=== PATIENT | male | born 1950 | race Caucasian/White ===

== ENCOUNTER 2018-07-31 13:31 | Observation (INO) | payer OTHER ==
--- NOTE | 2018-07-31 14:33 | EDPHY ---
H & P Stated Complaint: fall ice skating Time Seen by Provider: 07/31/18 14:32 HPI/ROS: HPI CHIEF COMPLAINT: Fall ice skating. HISTORY OF PRESENT ILLNESS: 68-year-old male presents emergency room after he fell ice skating. Patient was wearing helmet. He fell backwards with head strike. He was helmeted. No LOC. However complains of a headache. Also complains of neck pain. Also complains of right posterior rib pain. Denies any other areas of pain. He states when he fell and knocked the wind out of him. Past Medical History: Insulin-dependent diabetes Past Surgical History: No recent surgery Social History: Lives in [place] visiting his brother here in [place]. Family History: Noncontributory ROS REVIEW OF SYSTEMS: 10 Systems were reviewed and negative with the exception of the elements mentioned in the history of present illness. Exam Constitutional GCS 15, alert or x4, triage nursing summary reviewed, vital signs reviewed, awake/alert. Eyes normal conjunctivae and sclera, EOMI, PERRLA. HENT head/neck atraumatic but in a cervical collar placed by ER staff upon arrival, no significant midline pain otherwise atraumatic head and neck exam moist mucus membranes, no epistaxis, neck supple/ no meningismus, no raccoon eyes. Respiratory clear to auscultation bilaterally, normal breath sounds, no respiratory distress, no wheezing. Cardiovascular chest wall: Right posterior chest wall nontender palpation, no crepitus, rate normal, regular rhythm, no murmur, no edema, distal pulses normal. Gastrointestinal soft, non-tender, no rebound, no guarding, normal bowel sounds, no distension, no pulsatile mass. Genitourinary no CVA tenderness. Musculoskeletal no midline vertebral tenderness, full range of motion, no calf swelling, no tenderness of extremities, no meningismus, good pulses, neurovascularly intact. Skin pink, warm, & dry, no rash, skin atraumatic. Neurologic awake, alert and oriented x 3, AAOx3, moves all 4 extremities equally, motor intact, sensory intact, CN II-XII intact, normal cerebellar, normal vision, normal speech. Psychiatric normal mood/affect. Heme/Lymph/Immune no lymphadenopathy. Differential Diagnosis: Includes but is not limited to in a particular order closed-head injury, concussion, intracranial bleed, skull fracture, rib fracture , rib contusion, pneumothorax, hemothorax Medical Decision Making: Plan for this patient CT scan head without contrast and CT cervical spine without contrast, chest x-ray two view. [place] for pain control. Re-evaluation: CT scan head without contrast and CT cervical spine without contrast for trauma called to me by Dr. Philip Carcamo. Negative for acute traumatic injury. CT scan of the chest without contrast called to me by Dr. Hernandez, shows rib fractures 3 through 8th, the 5th and 6th rib on the right are flail segment. Also T7 T8 endplate superior fractures per I spoke with Dr. Pierce, with Trauma surgery agrees to admit the patient overnight. Plan for admission overnight for rib fractures, fall, contusion chest wall. Source: Patient - Personal History Current Tetanus/Diphtheria Vaccine: Yes Current Tetanus Diphtheria and Acellular Pertussis (TDAP): Yes - Medical/Surgical History Hx Asthma: No Hx Chronic Respiratory Disease: No Hx Diabetes: Yes Hx Cardiac Disease: No Hx Renal Disease: No Hx Cirrhosis: No Hx Alcoholism: No Hx HIV/AIDS: No Hx Splenectomy or Spleen Trauma: No Other PMH: DM1, hypertension, depression, tonsilectomy - Social History Smoking Status: Never smoked Constitutional: Initial Vital Signs Temperature (C) 36.4 C 07/31/18 13:36 Heart Rate 81 07/31/18 13:36 Respiratory Rate 16 07/31/18 13:36 Blood Pressure 112/53 L 07/31/18 13:36 O2 Sat (%) 97 07/31/18 13:36 O2 Delivery Mode Room Air Allergies/Adverse Reactions: No Known Allergies Allergy (Unverified 07/31/18 13:35) Home Medications: Medication Instructions Recorded Atorvastatin Calcium [Lipitor 40 40 mg PO DAILY 07/31/18 mg (*)] Cholecalciferol (Vitamin D3) 1,000 unit PO DAILY 07/31/18 [Vitamin D3] Insulin Pump, Patient Own 1 ea MISC AD 07/31/18 Lisinopril [Zestril 40 mg (*)] 40 mg PO DAILY 07/31/18 Venlafaxine HCl [Venlafaxine 75MG 150 mg PO DAILY 07/31/18 (*)] Vitamin B Complex [Vitamin B 1 each PO DAILY 07/31/18 Complex (OTC)] amLODIPine BESYLATE [Amlodipine 10 mg PO DAILY 07/31/18 Besylate] busPIRone [Buspar (*)] 10 mg PO BID 07/31/18 Medical Decision Making - Diagnostics Imaging Results: Imaging Impressions Cervical Spine CT 07/31/18 14:18 Impression: 1. No acute posttraumatic abnormality identified. If there is persistent pain or neurologic deficit, consider MRI and/or flexion and extension views, if clinically indicated. 2. Grade 1 spondylolisthesis of C7 on T1, with multilevel degenerative change, most prominent from C5 through C7, with probable moderate to severe spinal canal narrowing. 3. 1.3 cm left thyroid nodule, for which no further follow up is recommended per the [employer]. Findings discussed with Bella Lee M.D., on July 31, [address] 07/31/18 14:18 Impression: 1. No acute intracranial findings. 2. Diffuse cerebral atrophy with periventricular and subcortical low attenuation consistent with chronic microvascular ischemic gliosis. Findings discussed with Bella Lee M.D., on July 31, 2018 at 1506. Chest X-Ray 07/31/18 14:21 Impression: 1. Suspect acute posterior right sixth rib fracture. Multiple old bilateral rib and thoracic spine fractures described above; an acute component cannot be excluded. 2. No pneumothorax or pulmonary contusion. Chest CT 07/31/18 15:16 Impression: 1. Fractures of the third through eighth ribs as described, with 2 body fractures of the fifth and sixth ribs. 2. Superior compression deformities of T7 and T8, likely acute. 3. Left thyroid nodule measuring 9.2 mm. Would recommend ultrasound characterization. Findings and recommendations discussed with Jim Gamble MD at 1612 hour, 07/31/2018. - Data Points Medications Given: Cyclobenzaprine HCl (Flexeril) 10 mg PO TID JESUS Stop: 01/27/19 21:59 Last Admin: 07/31/18 21:52 Dose: 10 mg Ibuprofen (Motrin) 400 mg PO Q8HRS JESUS Stop: 01/27/19 21:59 Last Admin: 07/31/18 21:52 Dose: 400 mg Discontinued Medications Hydrocodone Bitart/Acetaminophen ([place] 5/325) 1 tab PO EDNOW ONE Stop: 07/31/18 14:59 Last Admin: 07/31/18 15:03 Dose: 1 tab Fentanyl (Sublimaze) 50 mcg IVP EDNOW ONE Stop: 07/31/18 16:17 Last Admin: 07/31/18 16:36 Dose: 50 mcg Sodium Chloride (Ns) 1,000 mls @ 0 mls/hr IV ONCE ONE; Wide Open PRN Reason: Protocol Stop: 07/31/18 16:17 Last Admin: 07/31/18 16:35 Dose: 1,000 mls Departure - Departure Disposition: [facility] Inpatient Acute Clinical Impression: Rib fractures Qualifiers: Encounter type: initial encounter Rib fracture type: multiple ribs Fracture type: closed Laterality: right Qualified Code(s): S22.41XA - Multiple fractures of ribs, right side, initial encounter for closed fracture Head injury Qualifiers: Encounter type: initial encounter Qualified Code(s): S09.90XA - Unspecified injury of head, initial encounter Concussion Qualifiers: Encounter type: initial encounter Loss of consciousness presence/duration: without LOC Qualified Code(s): S06.0X0A - Concussion without loss of consciousness, initial encounter Condition: Fair
[2018-07-31] MEDS ORDERED: HYDROCODONE/APAP 5/325 TAB PO ONE (14:58)
[2018-07-31] MEDS ORDERED: fentaNYL 100 MCG/2 ML INJ IVP ONE (16:16)
[2018-07-31] MEDS ORDERED: NS 1,000 ML IV ONE (16:16)
[2018-07-31 16:42] LABS: PLATELET COUNT 216 10^3/uL (150-400)
[2018-07-31 16:50] LABS: INR 0.91 (0.83-1.16); PROTIME(PATIENT) 12.5 SEC (12.0-15.0)
[2018-07-31] MEDS ORDERED: DIAZEPAM 5 MG TAB PO PRN (17:30)
[2018-07-31] MEDS ORDERED: HYDROCODONE/APAP 5/325 TAB PO PRN (17:30)
[2018-07-31] MEDS ORDERED: ONDANSETRON DISINTEGRATING 4 MG TAB PO PRN (17:30)
[2018-07-31] MEDS ORDERED: ACETAMINOPHEN 325 MG TAB PO PRN (17:30)
--- NOTE | 2018-07-31 17:30 | PDGENHP ---
History and Physical - Chief Complaint back and chest pain - History of Present Illness Mr. Evans was skating with hockey gear on including a helmet, when he lost his balance and fell backwards hitting the back of his head and feeling the wind knocked out of him. He got up and tried to skate some more, but felt dizzy and decided to come to the hospital. He was seem and evaluated by Dr. Mejia and was found to have multiple right sided rib fractures and Trauma Service admission was requested. History Information - Allergies/Home Medication List Allergies/Adverse Reactions: No Known Allergies Allergy (Unverified 07/31/18 13:35) Home Medications: Atorvastatin Calcium [Lipitor 40 mg (*)] 40 mg PO DAILY 07/31/18 [Last Taken Unknown] Cholecalciferol (Vitamin D3) [Vitamin D3] 1,000 unit PO DAILY 07/31/18 [Last Taken Unknown] Insulin Pump, Patient Own 1 ea MISC AD 07/31/18 [Last Taken Unknown] Lisinopril [Zestril 40 mg (*)] 40 mg PO DAILY 07/31/18 [Last Taken Unknown] Venlafaxine HCl [Venlafaxine 75MG (*)] 150 mg PO DAILY 07/31/18 [Last Taken Unknown] Vitamin B Complex [Vitamin B Complex (OTC)] 1 each PO DAILY 07/31/18 [Last Taken Unknown] amLODIPine BESYLATE [Amlodipine Besylate] 10 mg PO DAILY 07/31/18 [Last Taken Unknown] busPIRone [Buspar (*)] 10 mg PO BID 07/31/18 [Last Taken Unknown] I have personally reviewed and updated: family history, medical history, social history, surgical history - Past Medical History diabetes type 1 (uses continuous insulin infusion pump), hypertension, hyperlipidemia, recent fracture - Surgical History Additional surgical history: two prior closed head injury, one after a BCA resulted in a 5 day period of amnesia. he also fell skating one other time resulting in a concussion - Social History Smoking Status: Never smoked Alcohol Use: Occasionally Drug Use: None Additional social history: here visiting his twin brother/he lives in [facility]. Review of Systems Review of Systems: Constitutional: Reports: recent illness EENMT: Reports: no symptoms Cardiac: Reports: chest pain, lightheadedness Respiratory: Reports: other (pain with deep inspiration, no hemoptysis) Gastrointestinal: Reports: no symptoms Genitourinary: Reports: no symptoms Muscolosketal: Reports: back pain, muscle stiffness Neurological: Reports: no symptoms Physical Exam Physical Exam: Temp Pulse Resp BP Pulse Ox 36.4 C 78 16 157/73 H 97 07/31/18 13:36 07/31/18 16:00 07/31/18 16:00 07/31/18 16:00 07/31/18 16:00 Constitutional: appears nourished, uncomfortable Eyes: PERRL, EOMI, other Ears, Nose, Mouth, Throat: other (TMs clear, cervical spine non-tender ) Cardiovascular: regular rate and rhythym, no murmur, rub, or gallop Peripheral Pulses: 2+: dorsalis-pedis (R), dorsalis-pedis (L), 3+: femoral (R), femoral (L) Respiratory: no respiratory distress, reduced air movement, other (tenderness right lateral chest wall without crepitance) Gastrointestinal: normoactive bowel sounds Genitourinary: no bladder fullness Skin: warm Musculoskeletal: other (mild tenderness thoracic spine /paramedian) Neurologic: AAOx3, sensation intact bilaterally, CN II-XII Intact, other (DTR's symmetrical, no focal weakness) Lymph, Heme, Immunologic: no cervical LAD Lab Data & Imaging Review 07/31/18 16:33 07/31/18 16:33 WBC 11.44 10^3/uL (3.80-9.50) H 07/31/18 16:33 RBC 4.30 10^6/uL (4.40-6.38) L 07/31/18 16:33 Hgb 12.9 g/dL (13.7-17.5) L 07/31/18 16:33 Hct 38.3 % (40.0-51.0) L 07/31/18 16:33 MCV 89.1 fL (81.5-99.8) 07/31/18 16:33 MCH 30.0 pg (27.9-34.1) 07/31/18 16:33 MCHC 33.7 g/dL (32.4-36.7) 07/31/18 16:33 RDW 13.1 % (11.5-15.2) 07/31/18 16:33 Plt Count 216 10^3/uL (150-400) 07/31/18 16:33 MPV 9.6 fL (8.7-11.7) 07/31/18 16:33 Neut % (Auto) 85.0 % (39.3-74.2) H 07/31/18 16:33 Lymph % (Auto) 8.8 % (15.0-45.0) L 07/31/18 16:33 [place] % (Auto) 5.2 % (4.5-13.0) 07/31/18 16:33 Eos % (Auto) 0.1 % (0.6-7.6) L 07/31/18 16:33 Baso % (Auto) 0.4 % (0.3-1.7) 07/31/18 16:33 Nucleat RBC Rel Count 0.0 % (0.0-0.2) 07/31/18 16:33 Absolute Neuts (auto) 9.72 10^3/uL (1.70-6.50) H 07/31/18 16:33 Absolute Lymphs (auto) 1.01 10^3/uL (1.00-3.00) 07/31/18 16:33 Absolute Monos (auto) 0.59 10^3/uL (0.30-0.80) 07/31/18 16:33 Absolute Eos (auto) 0.01 10^3/uL (0.03-0.40) L 07/31/18 16:33 Absolute Basos (auto) 0.05 10^3/uL (0.02-0.10) 07/31/18 16:33 Absolute Nucleated RBC 0.00 10^3/uL (0-0.01) 07/31/18 16:33 Immature Gran % 0.5 % (0.0-1.1) 07/31/18 16:33 Immature Gran # 0.06 10^3/uL (0.00-0.10) 07/31/18 16:33 PT 12.5 SEC (12.0-15.0) 07/31/18 16:33 INR 0.91 (0.83-1.16) 07/31/18 16:33 APTT 21.0 SEC (23.0-38.0) L 07/31/18 16:33 Sodium 134 mEq/L (135-145) L 07/31/18 16:33 Potassium 4.3 mEq/L (3.5-5.2) 07/31/18 16:33 Chloride 101 mEq/L (97-110) 07/31/18 16:33 Carbon Dioxide 24 mEq/l (22-31) 07/31/18 16:33 Anion Gap 9 mEq/L (6-14) 07/31/18 16:33 BUN 21 mg/dL (7-23) 07/31/18 16:33 Creatinine 1.2 mg/dL (0.7-1.3) 07/31/18 16:33 Estimated GFR 60 07/31/18 16:33 Glucose 194 mg/dL (70-100) H 07/31/18 16:33 Calcium 10.3 mg/dL (8.5-10.4) 07/31/18 16:33 Visualized and Interpreted Chest x-ray results: Yes Chest X-Ray results: other (old fractures rith lateral 4-6 ribs/no pneumo or hemo) Visualized and Interpreted imaging results: Yes Interpretation: CT head and neck negative for acute fracture or bleed, Chest CT shows displaced posaterior right 5th, 6th and 8th ribs, non-displaced fractures right anterolateral 3rd-7th ribs. Compression fractures T7-8 (age indeterminate) 9 mm left thyroid nodule Assessment & Plan Assessment: Fall while skating with helmet Concussion (Acute) with prior history of two prior closed head injuries Rib fractures, multiple right sided fractures, uncomplicated IDDM HTN Hyperlipidemia Age >65 Plan: MRI thoracic spine/spine precautions until then admit med surgery Trauma Service with Hospitalist consult Pulmonary toilet/IS VTE prophylaxis OT/PT/ST consults IV/oral narcotics for pain muscle relaxants Michael Pierce MD, FACS
[2018-07-31] MEDS ORDERED: NS 1,000 ML IV SCH (17:45)
[2018-07-31] MEDS ORDERED: D50W 25 GM/50 ML VIAL IVP PRN (21:05)
--- NOTE | 2018-07-31 21:10 | PDHOSCONS ---
History and Physical - Chief Complaint rib fractures - History of Present Illness Patient is a 68 yo M with PMH of DM1, HTN, depression and anxiety currently visiting his twin brother from [place] who presents s/p fall while skating. He notes he has some rib pain and hit his head when he fell. He was found to have multiple rib fractures, thoracic compression fractures and concussion. At the time of my evaluation he states his pain is controlled, he is cautious in taking pain meds as he is afraid of becoming addicted. He notes he had a similar incident while skating 5 years ago but that time the rib pain was much worse. He notes he has very well controlled DM, he uses an insulin pump and has been managing it for 46 years. He notes his sugar was high tonight due to the adrenaline. History Information - Allergies/Home Medication List Allergies/Adverse Reactions: No Known Allergies Allergy (Unverified 07/31/18 13:35) Home Medications: Atorvastatin Calcium [Lipitor 40 mg (*)] 40 mg PO DAILY 07/31/18 [Last Taken Unknown] Cholecalciferol (Vitamin D3) [Vitamin D3] 1,000 unit PO DAILY 07/31/18 [Last Taken Unknown] Insulin Pump, Patient Own 1 ea MISC AD 07/31/18 [Last Taken Unknown] Lisinopril [Zestril 40 mg (*)] 40 mg PO DAILY 07/31/18 [Last Taken Unknown] Venlafaxine HCl [Venlafaxine 75MG (*)] 150 mg PO DAILY 07/31/18 [Last Taken Unknown] Vitamin B Complex [Vitamin B Complex (OTC)] 1 each PO DAILY 07/31/18 [Last Taken Unknown] amLODIPine BESYLATE [Amlodipine Besylate] 10 mg PO DAILY 07/31/18 [Last Taken Unknown] busPIRone [Buspar (*)] 10 mg PO BID 07/31/18 [Last Taken Unknown] I have personally reviewed and updated: family history, medical history, social history, surgical history - Past Medical History diabetes type 1, hypertension, hyperlipidemia, psychiatric history - Surgical History Reports: no pertinent surgical hx - Family History Positive for: diabetes type I - Social History Smoking Status: Never smoked Alcohol Use: Occasionally Drug Use: None Additional social history: lives in [facility], visiting his twin brother Review of Systems Review of Systems: ROS: 10pt was reviewed & negative except for what was stated in HPI & below Physical Exam Physical Exam: Temp Pulse Resp BP Pulse Ox 37 C 79 16 140/68 H 99 07/31/18 18:03 07/31/18 18:03 07/31/18 18:03 07/31/18 18:03 07/31/18 18:03 Constitutional: no apparent distress, appears nourished Eyes: PERRL, anicteric sclera Ears, Nose, Mouth, Throat: moist mucous membranes, hearing normal Cardiovascular: regular rate and rhythym, no murmur, rub, or gallop Respiratory: no respiratory distress, no rales or rhonchi Gastrointestinal: normoactive bowel sounds Skin: warm, normal color Musculoskeletal: no muscle tenderness Neurologic: AAOx3 Psychiatric: interacting appropriately Lab Data & Imaging Review 07/31/18 16:33 07/31/18 16:33 WBC 11.44 10^3/uL (3.80-9.50) H 07/31/18 16:33 RBC 4.30 10^6/uL (4.40-6.38) L 07/31/18 16:33 Hgb 12.9 g/dL (13.7-17.5) L 07/31/18 16:33 Hct 38.3 % (40.0-51.0) L 07/31/18 16:33 MCV 89.1 fL (81.5-99.8) 07/31/18 16:33 MCH 30.0 pg (27.9-34.1) 07/31/18 16:33 MCHC 33.7 g/dL (32.4-36.7) 07/31/18 16:33 RDW 13.1 % (11.5-15.2) 07/31/18 16:33 Plt Count 216 10^3/uL (150-400) 07/31/18 16:33 MPV 9.6 fL (8.7-11.7) 07/31/18 16:33 Neut % (Auto) 85.0 % (39.3-74.2) H 07/31/18 16:33 Lymph % (Auto) 8.8 % (15.0-45.0) L 07/31/18 16:33 [place] % (Auto) 5.2 % (4.5-13.0) 07/31/18 16:33 Eos % (Auto) 0.1 % (0.6-7.6) L 07/31/18 16:33 Baso % (Auto) 0.4 % (0.3-1.7) 07/31/18 16:33 Nucleat RBC Rel Count 0.0 % (0.0-0.2) 07/31/18 16:33 Absolute Neuts (auto) 9.72 10^3/uL (1.70-6.50) H 07/31/18 16:33 Absolute Lymphs (auto) 1.01 10^3/uL (1.00-3.00) 07/31/18 16:33 Absolute Monos (auto) 0.59 10^3/uL (0.30-0.80) 07/31/18 16:33 Absolute Eos (auto) 0.01 10^3/uL (0.03-0.40) L 07/31/18 16:33 Absolute Basos (auto) 0.05 10^3/uL (0.02-0.10) 07/31/18 16:33 Absolute Nucleated RBC 0.00 10^3/uL (0-0.01) 07/31/18 16:33 Immature Gran % 0.5 % (0.0-1.1) 07/31/18 16:33 Immature Gran # 0.06 10^3/uL (0.00-0.10) 07/31/18 16:33 PT 12.5 SEC (12.0-15.0) 07/31/18 16:33 INR 0.91 (0.83-1.16) 07/31/18 16:33 APTT 21.0 SEC (23.0-38.0) L 07/31/18 16:33 Sodium 134 mEq/L (135-145) L 07/31/18 16:33 Potassium 4.3 mEq/L (3.5-5.2) 07/31/18 16:33 Chloride 101 mEq/L (97-110) 07/31/18 16:33 Carbon Dioxide 24 mEq/l (22-31) 07/31/18 16:33 Anion Gap 9 mEq/L (6-14) 07/31/18 16:33 BUN 21 mg/dL (7-23) 07/31/18 16:33 Creatinine 1.2 mg/dL (0.7-1.3) 07/31/18 16:33 Estimated GFR 60 07/31/18 16:33 Glucose 194 mg/dL (70-100) H 07/31/18 16:33 Calcium 10.3 mg/dL (8.5-10.4) 07/31/18 16:33 Visualized and Interpreted Chest x-ray results: Yes Chest X-Ray results: other (mutliple rib fractures) Visualized and Interpreted imaging results: Yes Interpretation: head CT: nothing acute, diffuse cerebral atrophy. chest CT: multiple rib fractures, t7/t8 compresion fractures likely acute, thyroid nodule Assessment & Plan Assessment: Concussion (Acute) Head injury (Acute) Rib fractures (Acute) 68 yo M with hx of DM1, HTN, depression/anxiety admitted s/p fall while skating with multiple rib fractures, thoracic compression fractures and concussion , medicine consulted at request of general surgery for management of DM1 # DM1: patient with good control per his report, will allow him to continue his insulin pump, will monitor achs blood glucose # multiple rib fractures: with only minimal pain, noted to have atelectasis already on imaging, IS/pain control # t7/t8 compression fractures: patient states these are old, but per radiology appear acute, surgery aware, pain mgmt # thyroid nodule: patient will need outpatient follow up--this will need to be communicated to him in the morning prior to discharge # concussion: patient noted to be perseverative on exam but non focal and otherwise appeared to be mentating normally, head ct without acute findings # htn: continue op meds # depression/anxiety: continue op meds # Patient new to my care. Old records reviewed. Care plan reviewed with Dr. Pierce as above. Medicine will continue to follow while patient in house.
[2018-07-31] MEDS: CYCLOBENZAPRINE 10 MG TAB PO SCH (21:52)
[2018-07-31] MEDS: IBUPROFEN 200 MG TAB PO SCH (21:52)
[2018-08-01 04:51] LABS: PLATELET COUNT 184 10^3/uL (150-400)
[2018-08-01] MEDS: IBUPROFEN 200 MG TAB PO SCH ×3 (05:37→21:12)
--- NOTE | 2018-08-01 08:46 | TRAUMAPN ---
Trauma Progress Note Assessment/Plan: 68 yo with R rib fractures 3-8 Doing very well Pain controlled with over the counter medications and Flexeril Tertiary survey performed Can DC home Staying at his brothers in [place]. Will either follow up with me or Dr. Pierce prior to returning to [facility] S: Pain controlled. Realized that skating is no longer a good idea for him - not like riding a bike Objective: Vital Signs Temp Pulse Resp BP Pulse Ox 36.9 C 70 16 114/49 L 94 08/01/18 07:40 08/01/18 07:40 08/01/18 07:40 08/01/18 07:40 08/01/18 07:40 Laboratory Results 08/01/18 04:19 08/01/18 04:19 07/31/18 08/01/18 08/02/18 05:59 05:59 05:59 Intake Total 1300 Output Total 0 Balance 1300 PT 12.5 SEC (12.0-15.0) 07/31/18 16:33 INR 0.91 (0.83-1.16) 07/31/18 16:33 Physical Exam - Physical Exam General Appearance: WD/WN, alert, no apparent distress EENT: PERRL/EOMI, normal ENT inspection, No scleral icterus (R), No scleral icterus (L), No hearing deficit Neck: non-tender, full range of motion Respiratory: chest non-tender, lungs clear, normal breath sounds Cardiac/Chest: normal peripheral pulses, regular rate, rhythm Abdomen: normal bowel sounds, non-tender, soft Extremities: normal range of motion, non-tender Neuro/Psych: no motor/sensory deficits, normal mood/affect
[2018-08-01] MEDS: INSULIN LISPRO 100 UNIT/ML SC SCH ×4 (10:20→18:44)
[2018-08-01] MEDS: LISINOPRIL 40 MG TAB PO SCH (10:22)
[2018-08-01] MEDS: VENLAFAXINE HCL 75 MG TAB PO SCH (10:23)
[2018-08-01] MEDS: VITAMIN B COMPLEX 1 EA CAP/TAB PO SCH (10:23)
[2018-08-01] MEDS: ENOXAPARIN 40 MG/0.4 ML SYR SC SCH (10:23)
[2018-08-01] MEDS: busPIRone 10 MG TAB PO SCH ×2 (10:23→21:12)
[2018-08-01] MEDS: CHOLECALCIFEROL VIT D3 1,000 UNITS TAB PO SCH (10:23)
[2018-08-01] MEDS: CYCLOBENZAPRINE 10 MG TAB PO SCH ×3 (10:23→21:12)
[2018-08-01] MEDS: ATORVASTATIN CALCIUM 40 MG TAB PO SCH (10:23)
--- NOTE | 2018-08-01 11:18 | HOSPPROG ---
Hospitalist Progress Note Assessment/Plan: 68 yo M with hx of DM1, HTN, depression/anxiety admitted s/p fall while skating with multiple rib fractures, thoracic compression fractures and concussion , medicine consulted at request of general surgery for management of DM1. First encounter, chart reviewed. # DM1: - continue his insulin pump - glucoses Q ac&hs - glucose are elevated this a.m #hyperkalemia -recheck labs now #hypotension w hx of HTN -will place parameters as when to hold ACEI -will give him a fluid bolus now # multiple rib fractures -minimal pain -use of IS # t7/t8 compression fractures # thyroid nodule -further f/u in the OP setting when he returns home # concussion -head CT shows nothing acute # depression/anxiety: continue op meds #plan; would hold dc until bp improves, and recheck his K Subjective: Max is feeling sleepy and not quite well at this time. Objective: Vital Signs Temp Pulse Resp BP Pulse Ox 36.9 C 70 16 97/49 L 94 08/01/18 07:40 08/01/18 07:40 08/01/18 07:40 08/01/18 10:22 08/01/18 07:40 Laboratory Results 08/01/18 04:19 08/01/18 04:19 07/31/18 08/01/18 08/02/18 05:59 05:59 05:59 Intake Total 1300 Output Total 0 Balance 1300 PT 12.5 SEC (12.0-15.0) 07/31/18 16:33 INR 0.91 (0.83-1.16) 07/31/18 16:33 - Physical Exam Constitutional: appears nourished Eyes: PERRL Ears, Nose, Mouth, Throat: hearing normal Cardiovascular: regular rate and rhythym Respiratory: no respiratory distress, reduced air movement (right base) Skin: warm Musculoskeletal: full muscle strength Neurologic: AAOx3 Psychiatric: interacting appropriately ICD10 Worksheet Patient Problems: Problems Problem Status Onset Concussion Acute Head injury Acute Rib fractures Acute
[2018-08-01 11:51] LABS: PLATELET COUNT 217 10^3/uL (150-400)
[2018-08-01] MEDS ORDERED: NS 250 ML IV ONE (11:57)
--- NOTE | 2018-08-01 12:43 | ASDISCHSUM ---
Discharge Information Plan Status:Home with No Needs Medically Cleared to Leave:07/31/2018 Discharge Date:07/31/2018 CM D/C Disposition:Home, Routine, Self-Care ADT D/C Disposition:Home, Routine, Self-Care Projected Discharge Date:08/01/2018 12:00 AM Transportation at D/C:Family Discharge Delay Reason: Follow-Up Date:08/01/2018 12:00 AM Discharge Slot: Final Diagnosis: Placement Information Patient Contact Information Contact Name:UZIEL Relationship: Address: Work Phone: City: [facility] Phone: State/Zip Code: Email: Financial Information Financial Class:[facility] Primary Plan Desc:[employer] OPEN [employer] LOCAL Primary Plan Number:[id number] Secondary Plan Desc: Secondary Plan Number: Assessment Information Case Management Discharge Plan Note Case Management Discharge Discharge Order Complete? Answers: Yes Patient to Obtain Answers: via Family Medications Transportation Arranged Answers: Family/Friends Discharge Comments Notes: PT reports pt is independent. No CM needs identified. Famliy to transport. Plan: Independent. Date Signed: 08/01/2018 12:43 PM Electronically Signed By:SEA Duff Intervention Information
[2018-08-01] MEDS ORDERED: D50W 25 GM/50 ML SYR IVP PRN (14:51)
[2018-08-01] MEDS ORDERED: INSULIN PUMP, PATIENT OWN 1 EA MISC SCH (15:00)
[2018-08-01 20:30] LABS: PLATELET COUNT 180 10^3/uL (150-400)
[2018-08-02] MEDS: IBUPROFEN 200 MG TAB PO SCH (04:55)
[2018-08-02 07:50] VITALS: BP 135/63
[2018-08-02] MEDS: INSULIN LISPRO 100 UNIT/ML SC SCH (07:57)
[2018-08-02] MEDS: CYCLOBENZAPRINE 10 MG TAB PO SCH (08:56)
[2018-08-02] MEDS: CHOLECALCIFEROL VIT D3 1,000 UNITS TAB PO SCH (08:56)
[2018-08-02] MEDS: busPIRone 10 MG TAB PO SCH (08:57)
[2018-08-02] MEDS: VENLAFAXINE HCL 75 MG TAB PO SCH (08:57)
[2018-08-02] MEDS: ATORVASTATIN CALCIUM 40 MG TAB PO SCH (08:57)
[2018-08-02] MEDS: LISINOPRIL 40 MG TAB PO SCH (08:57)
[2018-08-02] MEDS: VITAMIN B COMPLEX 1 EA CAP/TAB PO SCH (08:58)
[2018-08-02] MEDS: ENOXAPARIN 40 MG/0.4 ML SYR SC SCH (08:58)
--- NOTE | 2018-08-02 09:02 | PDDCSUM ---
Discharge Summary Discharge Summary: DISCHARGE SUMMARY Date of Admission July 31 Date of Discharge August 02 DISCHARGE DIAGNOSES -fall with multiple sided rib fractures, closed head injury HOSPITAL COURSE The patient was admitted from the ED with the above injuries. His rib fractures were managed conservatively and he was stable on room air with appropriate pain control. He had consultations from speech language pathology, PT and OT. He also had consultation from the medical service for management of his medical comorbidities. He initially had issues with management of his blood sugars, after interrogation and appropriate fixation of his insulin pump these were under appropriate control. He was discharged in stable condition on the morning of the DISCHARGE MEDICATIONS Flexeril and [place] DISPOSITION Home FOLLOW UP Follow up as needed, follow-up with PCP for management of blood glucose Total DC time = 25 minutes; more than 50% spent counseling/coordinating care
--- NOTE | 2018-08-02 11:09 | HOSPPROG ---
Hospitalist Progress Note Assessment/Plan: # thyroid nodule - patient given copy of the CT scan and rec's for outpatient US when he returns to [place] # DM1 - his pump has not been reconnected correctly until yesterday; he will take over management at this time; he is aware of symtpoms of hypoer and hypoglycemia # hyperK - resolved # multiple rib fx's - pain controlled # concussion # depr/anxiety - outpatient meds ok for DC from IM perspective Subjective: no complaints today; we discussed his insulin pump Objective: Vital Signs Temp Pulse Resp BP Pulse Ox 36.9 C 71 18 135/63 H 94 08/02/18 07:49 08/02/18 07:49 08/02/18 07:49 08/02/18 08:57 08/02/18 07:49 Laboratory Results 08/01/18 20:18 08/02/18 09:05 08/01/18 08/02/18 08/03/18 05:59 05:59 05:59 Intake Total 1300 500 Output Total 0 Balance 1300 500 PT 12.5 SEC (12.0-15.0) 07/31/18 16:33 INR 0.91 (0.83-1.16) 07/31/18 16:33 - Physical Exam Constitutional: no apparent distress, appears nourished Eyes: anicteric sclera Ears, Nose, Mouth, Throat: hearing normal Cardiovascular: No edema Respiratory: no respiratory distress Gastrointestinal: No distension Genitourinary: No sanchez in urethra Skin: normal color Musculoskeletal: full muscle strength Neurologic: AAOx3 ICD10 Worksheet Patient Problems: Problems Problem Status Onset Rib fractures Acute Head injury Acute Concussion Acute
== END 2018-08-02 11:21 | disposition home or self-care (01) ==
LOC: F3N 18:10
PROVIDERS: ADMIT Surgery; ATTEND Surgery
DX: S22.41XA Multiple fractures of ribs, right side, initial encounter for closed fracture (principal); S06.0X0A Concussion without loss of consciousness, initial encounter; E86.9 Volume depletion, unspecified; E10.9 Type 1 diabetes mellitus without complications; V00.211A Fall from ice-skates, initial encounter; Y92.330 Ice skating rink (indoor) (outdoor) as the place of occurrence of the external cause; Y99.8 Other external cause status; Y93.21 Activity, ice skating
CPT/HCPCS: 70450; 71045; 71046; 71250; 72125; 72146; 92523; 96361; 96372; 96374; 97116; 97161; 97165; 97530; 99285; G0378; J1650; J1815; J3010; L0172